=== PATIENT | female | born 1990 | race Two or more races ===

== ENCOUNTER 2024-04-11 17:03 | Emergency (ER) | payer MEDICAID, SELFPAY ==
[2024-04-11 17:20] VITALS: BP 103/65; PULSE 70; RESP 17; TEMP 37.1; O2SAT 99; BMI 30.5
--- NOTE | 2024-04-11 17:20 | XR_ITS ---
Examination: CT abdomen with intravenous contrast CT pelvis with intravenous contrast 2-D coronal reconstructions 2-D sagittal reconstructions Date and time of exam:April 11, 2024 1952 hrs. Comparison November 08, 2019 Indications: Frequent urination left upper abdominal pain beginning 2 days ago. CTDI: vol (mGy) 8.66 DLP: (mGycm) 483 Technique: Multiple axial sections of the abdomen and pelvis have been obtained. 64 slice high-resolution scanner used. 3 mm axial sections have been obtained, post intravenous injection 60 cc [id number] 2-D sagittal, coronal reconstructions obtained. Low dose protocols were performed. One or more of the following dose reduction techniques were used; automated exposure control, adjustment of the mA and/or KV according to patient size, use of iterative reconstruction technique. Findings: No focal liver or splenic lesions Contracted gallbladder No pancreatic or adrenal mass No renal or ureteral calculi, no hydronephrosis Aorta normal size Small bowel loops show mild wall thickening and hyperemia with inflammatory change especially about the terminal ileum There is a possible small portion of the appendix, normal in size noted on coronal image 62 No bowel obstruction Anteverted uterus with no adnexal mass Contracted urinary bladder The osseous structures are intact Impression: Abnormal small bowel especially terminal ileum with wall thickening and hyperemia and inflammatory change, highest on the differential list is enteritis such as Crohn's disease, clinical correlation advised No bowel obstruction
--- NOTE | 2024-04-11 17:21 | PD.EDRME ---
Rapid Medical Screening Exam RME Arrival date/time: 04/11/24 17:03 33-year-old female presents the emergency department complains of generalized abdominal pain tender on palpation Chief Complaint: Abdominal Pain Time Seen by Provider: 04/11/24 17:13 Vital signs: Vital Signs Temperature 98.7 F 04/11/24 17:20 Pulse Rate 70 04/11/24 17:20 Respiratory Rate 17 04/11/24 17:20 Blood Pressure 103/65 04/11/24 17:20 Pulse Oximetry (%) 99 04/11/24 17:20 Oxygen Delivery Method Room Air 04/11/24 17:20
[2024-04-11 18:06] LABS: Basophils # (Auto) 0.1 Thou/mm3 (0.0-0.2); Basophils % (Auto) 0 % (0-2.5); Eosinophils # (Auto) 0.1 Thou/mm3 (0.0-0.5); Eosinophils % (Auto) 0 % (0-10); Hemoglobin 12.8 g/dL (12.0-16.0); Immature Granulocytes % (Auto) 1 % (0-0); Immature Granulocytes Auto 0.08 Thou/mm3 (0.00-0.00); Lymphocytes # (Auto) 1.9 Thou/mm3 (1.0-4.8); Lymphocytes % (Auto) 12 % (10-50); Mean Corpuscular HGB Conc 34.6 g/dl (31.0-37.0); Mean Corpuscular Hemoglobin 30.9 pg (25.0-35.0); Mean Corpuscular Volume 89 fL (80-100); Monocytes # (Auto) 0.7 Thou/mm3 (0.0-0.8); Monocytes % (Auto) 4 % (0-12); Neutrophils # (Auto) 13.1 Thou/mm3 (1.8-7.7); Neutrophils % (Auto) 83 % (37-80); Nucleated Red Blood Cell % 0 /100 WBC (0); Platelet Count 224 Thou/mm3 (140-440); RDW Standard Deviation 42.1 fL (36.4-46.3); Red Blood Count 4.14 Miln/mm3 (4.00-5.20); White Blood Count 15.8 Thou/mm3 (3.6-11.0)
[2024-04-11 18:28] LABS: Collection Type, Urine Clean Catch
[2024-04-11 19:13] LABS: Bilirubin,Urine Negative (Negative); Blood,Urine Negative (Negative); Clarity,Urine Clear (Clear/Hazy); Color,Urine Lt-Yellow (Lt Yel-Yel); Culture Indicated,Urine Not Indicated; Glucose, Urine Negative (Negative); Ketones,Urine 1+ (Negative); Leukocyte Esterase,Urine Negative (Negative); Nitrite,Urine Negative (Negative); Protein,Urine Negative (Neg - Trace); RBC,Urine 1 /hpf (0-3); Specific Gravity,Urine 1.012 (1.001-1.035); Squamous Epithelial Cell,Urine 1 /hpf (0-5); Urobilinogen,Urine Negative mg/dL (0.0-1.0); WBC,Urine 1 /hpf (0-5)
[2024-04-11 19:19] LABS: Alanine Aminotransferase 58 U/L (10-49); Albumin, Serum 4.8 gm/dL (3.5-5.0); Albumin/Globulin Ratio 1.8 (1.2-2.2); Alkaline Phosphatase 80 U/L (46-116); Anion Gap 8 (7-16); Aspartate Amino Transferase 24 U/L (0-34); BUN/Creatinine Ratio 11 Ratio (12-20); Bilirubin,Total 2.4 mg/dL (0.3-1.2); Blood Urea Nitrogen 8 mg/dL (9-23); Carbon Dioxide 23.2 mMol/L (20.0-31.0); Chloride 104 mMol/L (98-107); Creatinine (Component) 0.7 mg/dL (0.6-1.3); Globulin 2.7 gm/dL (2.3-3.5); Glucose 129 mg/dL (74-106); Lipase 29 U/L (12-53); Osmolality,Calculated 270 (275-295); Sodium 135 mMol/L (136-145); Total Protein 7.5 gm/dL (5.7-8.2); eGFR > 60 See Note
[2024-04-11 19:27] LABS: HCG Qualitative,Urine Negative
--- NOTE | 2024-04-11 21:06 | PD.EDABDPN ---
ED Abdominal Pain RME/HPI General Chief Complaint: Abdominal Pain Stated complaint: Abdominal pain X 2 days Time seen by provider: 04/11/24 17:13 Arrival date/time: 04/11/24 17:03 Limitations: no limitations RME / HPI RME / HPI narrative: 04/11/24 17:03 33-year-old female presents the emergency department complains of generalized abdominal pain tender on palpation DR. RESENDEZ MAIN ED EVALUATION: 33 year old female with past medical history significant for hypercholesterolemia presents to the Emergency Department with complaint of diffuse abdominal pain and bloating x 1800 yesterday. She states her pain initially started in the epigastric area then radiated to her bilateral lower abdomen. Patient states she's had 2 episodes of diarrhea today. She denies any fever, chills, cough, N/V or any other associated symptoms. She denies any sick contacts at home. No known allergies. Patient states she still has abdominal pain. Related Data Home Medications ?Medication ?Instructions ?Recorded ?Confirmed vits no.130-ferrous fum 1 tab PO QDAY 05/11/23 05/11/23 27 mg iron-folic acid 800 mcg tablet ( Vitamin) Allergies Allergy/AdvReac Type Severity Reaction Status Date / Time No Known Allergies Allergy Verified 05/11/23 23:11 Review of Systems Review of Systems Systems Reviewed: All systems reviewed, normal except as documented Past Medical History Past Medical History CARDIAC: Positive Hypercholesterolemia GENITOURINARY: Positive Genitourinary Disorders OTHER HISTORY: Positive Hospitalization and Blood Transfusions (1ST DELIVERY) Social History SMOKING STATUS: Never smoker SECOND HAND EXPOSURE: No SUBSTANCE USE: does not use ALCOHOL: Never ED Exam General Limitations: Present no limitations General appearance: Present alert and in no apparent distress Head Head exam: Present atraumatic, normocephalic and normal inspection Eye Eye exam: Present normal appearance, PERRL and EOMI ENT ENT exam: Present normal exam, normal oropharynx and mucous membranes moist Neck Neck exam: Present normal inspection, full ROM and trachea midline Chest Chest inspection: Present normal inspection and symmetric chest wall rise Respiratory Respiratory exam: Present normal lung sounds bilaterally Cardiovascular Cardiovascular exam: Present regular rate, normal rhythm and normal heart sounds Abdominal Exam Abdominal exam: Present soft, distention (mild) and normal bowel sounds Extremities Exam Extremities exam: Present normal inspection and full ROM Back Exam Back exam: Present normal inspection and full ROM; Absent CVA tenderness (R) or CVA tenderness (L) Neurological Exam Neurological exam: Present alert, oriented X3 and CN II-XII intact Psychiatric Psychiatric exam: Present normal affect and normal mood Skin Skin exam: Present warm, dry, intact and normal color Course Quality Measures none Orders Category Date Time Status CT Screening NOW Care 04/11/24 17:21 Completed Insert IV NOW Care 04/11/24 17:[address] abdomen pelvis w con Stat Exams 04/11/24 17:20 Completed US abdomen limited Stat Exams 04/12/24 00:44 Taken CBC Stat Lab 04/11/24 17:26 Completed Comprehensive Metabolic Panel Stat Lab 04/11/24 17:26 Completed HCG Qualitative,Urine Stat Lab 04/11/24 18:08 Completed Lipase Stat Lab 04/11/24 17:26 Completed UA, C/S IF [Urinalysis, C/S if Indicated] Stat Lab 04/11/24 18:08 Completed Ketorolac Inj [Toradol Inj] Med 04/12/24 02:44 Discontinued 30 mg IVP X1 ONE Sodium Chloride 0.9% 1000 ml [Ns] 1,000 ml Med 04/11/24 23:35 Discontinued IV 999 mls/hr Vital Signs Vital signs: Vital Signs Temperature 98.7 F 04/11/24 17:20 Pulse Rate 70 04/11/24 17:20 Respiratory Rate 17 04/11/24 17:20 Blood Pressure 103/65 04/11/24 17:20 Pulse Oximetry (%) 99 04/11/24 17:20 Oxygen Delivery Method Room Air 04/11/24 17:20 Pulse ox is 99% on room air, which is normal according to my interpretation. Abdominal Pain MDM MDM Narrative MDM Narrative:: I, Martina Linton am scribing for and in the presence of Dr. Resendez. Patient data External records reviewed:: [facility] previous records (Reviewed [facility] / [facility] discharge note by Dr. Hickman, dated 05/13/23.) Clinical information provided by:: patient Social determinants that could affect healthcare access:: none Patient has the following chronic illnesses:: Hypercholesterolemia. How is presenting disease/condition affected by chronic disease/condition?: uneffected by Evaluation data The following diagnostics were reviewed and interpreted by me:: lab results and radiology exam(s) Lab and/or radiology exams considered but not ordered:: none Interpretation Summary: WBC count is elevated at 15.8. Total Bilirubin is elevated at 2.4, US ordered. Procedure(s): CT abdomen pelvis w con Accession Number(s): [id number] cc: Margaux (HANG),Trevor MAURICIO; Emile Macias MD; Chinedu Vargas MD~ Examination: CT abdomen with intravenous contrast CT pelvis with intravenous contrast 2-D coronal reconstructions 2-D sagittal reconstructions Date and time of exam:April 11, 2024 1952 hrs. Comparison November 08, 2019 Indications: Frequent urination left upper abdominal pain beginning 2 days ago. CTDI: vol (mGy) 8.66 DLP: (mGycm) 483 Technique: Multiple axial sections of the abdomen and pelvis have been obtained. 64 slice high-resolution scanner used. 3 mm axial sections have been obtained, post intravenous injection 60 cc [id number] 2-D sagittal, coronal reconstructions obtained. Low dose protocols were performed. One or more of the following dose reduction techniques were used; automated exposure control, adjustment of the mA and/or KV according to patient size, use of iterative reconstruction technique. Findings: No focal liver or splenic lesions Contracted gallbladder No pancreatic or adrenal mass No renal or ureteral calculi, no hydronephrosis Aorta normal size Small bowel loops show mild wall thickening and hyperemia with inflammatory change especially about the terminal ileum There is a possible small portion of the appendix, normal in size noted on coronal image 62 No bowel obstruction Anteverted uterus with no adnexal mass Contracted urinary bladder The osseous structures are intact Impression: Abnormal small bowel especially terminal ileum with wall thickening and hyperemia and inflammatory change, highest on the differential list is enteritis such as Crohn's disease, clinical correlation advised No bowel obstruction Dictated By: Chinedu Vargas MD ------- Telerad Preliminary Report Draft Patient: JUDD KAM [facility]. Record#: [id number] Birthdate: 1990 Age/Sex: 33 / F Location: [facility] Attending Dr: Ordering Physician: Date of Service: Procedure(s): Accession Number(s): cc: ~ Right upper quadrant abdominal ultrasound. April 12, 2024 0051 hours Clinical history: 33 yo abdominal pain, poss cholecystitis Technique: Grayscale and color flow images of the right upper quadrant are provided. Hepatic and portal veins were also imaged with color flow images. Findings: The liver measures 15.5 cm and demonstrates increased echogenicity. No intrahepatic biliary ductal dilatation. The main portal vein is patent and demonstrates hepatopetal flow. The gallbladder is contracted. No gallbladder calculus, wall thickening or pericholecystic fluid is demonstrated. The common bile duct is normal in caliber at 2.3 mm. The pancreas is unremarkable to the extent visualized. The inferior vena cava is unremarkable to the extent visualized. Impression: Contracted gallbladder, possibly postprandial. No sonographic evidence of cholelithiasis, acute cholecystitis or biliary obstruction. Consider repeat examination with adequate fasting, as clinically indicated. Fatty infiltration of the liver. Report Electronically Signed By: Nhan Funez 04/12/2024 1:39:46 AM [EST] Medications / Prescriptions Medications or Prescriptions considered but not ordered:: none Medication administrations:: Medication Administration History Discontinued Medications Sodium Chloride (Ns) 1,000 mls @ 999 mls/hr IV .Q1H1M ONE Stop: 04/12/24 00:35 Last Infusion: 04/12/24 02:28 Dose: Infused Documented By: Admin: 04/12/24 00:04 Dose: 999 mls/hr Documented By: LIZA Ketorolac Tromethamine (Ketorolac Inj 30 Mg/Ml Vial) 30 mg IVP X1 ONE Stop: 04/12/24 02:45 Last Admin: 04/12/24 02:53 Dose: 30 mg Documented By: KASANDRA see above if any Consultations Consultation(s) initiated? (list below): No Diagnosis Differential diagnosis abdominal pain: other (Crohn's disease, viral syndrome, dehydration, CBD stone, cholecystitis) Most likely diagnosis given after review of the tests above:: see below Admission Indicated Admission indicated?: not indicated Admission Request Was there a request for admission?: No Disposition Plan Disposition Plan: Discharge Discharge Attestation Discharge Attestation: The patient and all family members were given an opportunity to ask questions and understood the discharge instructions. Discharge instructions specifically effects, indications for sooner follow up or return to the emergency department, and the expected course of current diagnosis. Patient condition: Stable Discharge Plan Plan Patient Disposition: HOME (Self Care) Patient condition on transfer: Stable Prescriptions/Referrals Prescriptions/Med Rec: No Action Vitamin 27 mg iron- 800 mcg tablet 1 tab PO QDAY Referrals: Emile Macias MD [Primary Care Provider] - In 1 week Problem List Clinical Impression: Abdominal pain Patient/Caregiver Discharge Instructions Education Materials: ED Pain, Acute, Uncertain Cause Additional Instructions: Return to the emergency department for worsening symptoms, or any other concerns. You can take [id number] Tylenol 650 mg Print Language: Citizen [place] Stand Alone Forms: Sonya Award Info., Patient Portal Info Letter
[2024-04-12] MEDS: SODIUM CHLORIDE 0.9% 1000 ML 1,000 ML 999 ML IV (00:04)
--- NOTE | 2024-04-12 00:44 | XR_ITS ---
Examination: Abdomen sonogram, Limited Date and time of exam: April 12, 2024 0051 hours INDICATIONS: Generalized abdominal pain today Technique: Real-time barrera scale transabdominal sonographic images of the upper abdomen obtained. Findings: Contracted gallbladder Common bile duct 0.2 cm Pancreatic head 2.4 cm Liver 15.5 cm fatty liver smooth contour no focal liver lesions Normal hepatopedal portal venous flow Patent IVC IMPRESSION: Repeat the gallbladder portion of the study with fasting
--- NOTE | 2024-04-12 01:40 | PRELIM_ITS ---
Right upper quadrant abdominal ultrasound. April 12, 2024 0051 hours Clinical history: 33 yo abdom inal pain, poss cholecystitis Technique: Grayscale and color flow images of the right upper quadrant are provided. Hepatic and portal veins were also imaged with color flow images. Findings:The liver me asures 15.5 cm and demonstrates increased echogenicity. No intrahepatic biliary ductal dilatation. Th e main portal vein is patent and demonstrates hepatopetal flow. The gallbladder is contracted. No gal lbladder calculus, wall thickening or pericholecystic fluid is demonstrated. The common bile duct is normal in caliber at 2.3 mm. The pancreas is unremarkable to the extent visualized. The inferior vena cava is unremarkable to the extent visualized.Impression:Contracted gallbladder, possibly postprandi al. No sonographic evidence of cholelithiasis, acute cholecystitis or biliary obstruction. Consider r epeat examination with adequate fasting, as clinically indicated.Fatty infiltration of the liver. Re port Electronically Signed By: Nhan Funez 04/12/2024 1:39:46 AM [EST]
[2024-04-12] MEDS: KETOROLAC INJ 30 MG/ML VIAL IVP (02:53)
[2024-04-12 03:11] VITALS: BP 108/69; PULSE 73; RESP 16; TEMP 36.8; O2SAT 99
== END 2024-04-12 03:10 | disposition home or self-care (01) ==
PROVIDERS: Nurse Practitioner Primary Care; Emergency Provider Emergency Medicine; PCP Family Medicine
DX: K82.0 Obstruction of gallbladder (principal); K76.0 Fatty (change of) liver, not elsewhere classified; K63.89 Other specified diseases of intestine
CPT/HCPCS: 36415; 74177; 76705; 80053; 81001; 81025; 83690; 85025; 96361; 96374; 99285; A4649; J1885; J7030; Q9967

== ENCOUNTER → 2024-08-13 | Outpatient (CLI) | payer MEDICAID, SELFPAY ==
--- NOTE | 2024-08-13 07:30 | XR_ITS ---
Examination: CT brain head without contrast. 2-D sagittal coronal reconstructions Date and time of exam:August 13, 2024 0734 hrs. Indications: Onset dizziness headaches blurred vision beginning one month ago. CTDI: vol (mGy):45.7 DLP: (mGycm):875 Technique: Multiple CT axial sections of the brain have been obtained, 5 mm slice thickness. Contrast has not been administered. 2-D sagittal, coronal reconstructions have been obtained Low dose protocols were performed. One or more of the following dose reduction techniques were used; automated exposure control, adjustment of the mA and/or KV according to patient size, use of iterative reconstruction technique. Findings: No significant ventricular enlargement. Intra-axial or extra-axial hemorrhage density is not seen. No mass effect or midline shift Basal cisterns are not remarkable. Fourth ventricle is midline. Cranial vault intact. Impression: Negative for acute hemorrhage, mass effect or midline shift As clinically warranted, brain MRI follow-up would best assess for demyelinating disease, acute ischemic change
== END | disposition home or self-care (01) ==
PROVIDERS: Referring Provider Physician Assistant; Visit Provider Physician Assistant
DX: H53.9 Unspecified visual disturbance (principal)
CPT/HCPCS: 70450